=== PATIENT | female | born 1980 | race Two or more races ===

== ENCOUNTER 2017-01-24 20:45 | Observation (INO) | payer MEDICAID ==
[~2017-01-24 20:45] MED LIST: ALEVE220 M4 PO; IBUPROFEN800 M1 PO; PERCOCET 5-3251 EACH PO; PRENATAL TABLE1 EAC5 PO; TRAMADOL HCL50 M2 PO; VENTOLIN HFA18 G2 PO
[2017-01-24 21:32] LABS: URINE BILIRUBIN NEGATIVE (NEG); URINE BLOOD MODERATE (NEG); URINE GLUCOSE (UA) NEGATIVE (NEG); URINE KETONE NEGATIVE (NEG); URINE LEUKOCYTE ESTERASE NEGATIVE (NEG); URINE NITRITE NEGATIVE (NEG); URINE PROTEIN NEGATIVE (NEG)
[2017-01-24 21:34] LABS: BASO % 0.1 % (0-2); EOS % 1.7 % (0-7); EOSINOPHIL ABSOLUTE COUNT 0.2 tho/cmm (0.0-0.7); HCT-HEMATOCRIT 31.3 % (34.0-49.0); HGB-HEMOGLOBIN 10.2 gm/dl (12.0-15.5); IMMATURE GRANULOCYTES ABSOLUTE 0.05 tho/cmm (0-0.03); IMMATURE GRANULOCYTES PERCENT 0.5 % (0-0.3); LYMPH ABSOLUTE COUNT 2.3 tho/cmm (0.8-4.5); MCH (MEAN CORPUSCULAR HGB) 23.2 pg (28.0-32.0); MCHC MEAN CORPUSCULAR HGB CONC 32.6 % (32.0-36.0); MCV (MEAN CELL VOLUME) 71.3 fl (82.0-96.0); MEAN PLATELET VOLUME 9.3 cmc (9.4-12.4); MONO % 5.4 % (0-12); MONOCYTE ABSOLUTE COUNT 0.6 tho/cmm (0.0-1.2); NEUTROPHIL ABSOLUTE COUNT 7.3 tho/cmm (1.6-8.0); NEUTROPHIL-AUTOMATED 7.3 tho/cmm (1.6-8.0); NEUTROPHILS % 70.3 % (40-80); PLATELET COUNT 275 tho/cmm (150-450); RED BLOOD COUNT 4.39 mil/cmm (4.00-5.20); RED CELL DISTRIBUTION WIDTH 15.8 % (12.4-16.4); WHITE BLOOD COUNT 10.3 tho/cmm (4.0-10.0)
[2017-01-24 21:41] LABS: URINE APPEARANCE HAZY; URINE COLOR YELLOW
[2017-01-24 21:45] LABS: URINE WBC 0-1 /[HPF] (0-5)
[2017-01-24 21:46] LABS: URINE EPITHELIAL CELLS 0-1 /[HPF] (0-10)
[2017-02-25] MEDS ORDERED: LABETALOL HCL100 M1 PO (07:53)
[2017-02-25] MEDS ORDERED: BUTALBITAL-ASA1 EACH PO (07:54)
== END 2017-01-24 23:18 ==
LOC: LDR 20:45
PROVIDERS: ADMIT Obstetrics & Gynecology
DX: O26.893 Other specified pregnancy related conditions, third trimester (principal); R10.31 Right lower quadrant pain; M54.9 Dorsalgia, unspecified; Z3A.33 33 weeks gestation of pregnancy

== ENCOUNTER 2017-02-25 08:20 | Inpatient (IN) | payer MEDICAID ==
[~2017-02-25 08:20] MED LIST changes: +BUTALBITAL-ASA1 EACH PO; +LABETALOL HCL100 M1 PO
[2017-02-25 09:02] LABS: BASO % 0.2 % (0-2); EOS % 1.8 % (0-7); EOSINOPHIL ABSOLUTE COUNT 0.2 tho/cmm (0.0-0.7); HCT-HEMATOCRIT 30.3 % (34.0-49.0); HGB-HEMOGLOBIN 9.5 gm/dl (12.0-15.5); LYMPH % 19.5 % (20-45); LYMPH ABSOLUTE COUNT 1.8 tho/cmm (0.8-4.5); MCHC MEAN CORPUSCULAR HGB CONC 31.4 % (32.0-36.0); MCV (MEAN CELL VOLUME) 70.3 fl (82.0-96.0); MEAN PLATELET VOLUME 9.4 cmc (9.4-12.4); MONO % 6.6 % (0-12); MONOCYTE ABSOLUTE COUNT 0.6 tho/cmm (0.0-1.2); NEUTROPHIL ABSOLUTE COUNT 6.7 tho/cmm (1.6-8.0); NEUTROPHIL-AUTOMATED 6.7 tho/cmm (1.6-8.0); NEUTROPHILS % 71.9 % (40-80); PLATELET COUNT 313 tho/cmm (150-450); RED BLOOD COUNT 4.31 mil/cmm (4.00-5.20); RED CELL DISTRIBUTION WIDTH 16.3 % (12.4-16.4); WHITE BLOOD COUNT 9.4 tho/cmm (4.0-10.0)
[2017-02-25] MEDS ORDERED: NO HOME MEDICATION (09:55)
[2017-02-25 14:58] LABS: HGB-HEMOGLOBIN 7.2 gm/dl (12.0-15.5); MCV (MEAN CELL VOLUME) 69.6 fl (82.0-96.0); RED CELL DISTRIBUTION WIDTH 16.2 % (12.4-16.4)
[2017-02-25 14:59] LABS: HCT-HEMATOCRIT 22.7 % (34.0-49.0)
[2017-02-26 06:18] LABS: BASO % 0.1 % (0-2); EOS % 0.7 % (0-7); EOSINOPHIL ABSOLUTE COUNT 0.1 tho/cmm (0.0-0.7); HGB-HEMOGLOBIN 7.3 gm/dl (12.0-15.5); IMMATURE GRANULOCYTES ABSOLUTE 0.07 tho/cmm (0-0.03); IMMATURE GRANULOCYTES PERCENT 0.5 % (0-0.3); LYMPH % 11.2 % (20-45); LYMPH ABSOLUTE COUNT 1.5 tho/cmm (0.8-4.5); MCV (MEAN CELL VOLUME) 71.3 fl (82.0-96.0); MEAN PLATELET VOLUME 9.1 cmc (9.4-12.4); MONO % 6.1 % (0-12); MONOCYTE ABSOLUTE COUNT 0.8 tho/cmm (0.0-1.2); NEUTROPHIL ABSOLUTE COUNT 11.2 tho/cmm (1.6-8.0); NEUTROPHIL-AUTOMATED 11.2 tho/cmm (1.6-8.0); NEUTROPHILS % 81.4 % (40-80); PLATELET COUNT 233 tho/cmm (150-450); RED BLOOD COUNT 3.07 mil/cmm (4.00-5.20); RED CELL DISTRIBUTION WIDTH 17.4 % (12.4-16.4); WHITE BLOOD COUNT 13.7 tho/cmm (4.0-10.0)
[2017-02-26 06:19] LABS: HCT-HEMATOCRIT 21.9 % (34.0-49.0); MCH (MEAN CORPUSCULAR HGB) 23.8 pg (28.0-32.0); MCHC MEAN CORPUSCULAR HGB CONC 33.3 % (32.0-36.0)
[2017-02-28] MEDS ORDERED: IBUPROFEN800 M1 PO (23:12)
[2017-02-28] MEDS ORDERED: FEOSOL325 M1 PO (23:14)
[2017-02-28] MEDS ORDERED: PERCOCET 5-3251 EACH PO (23:14)
== END 2017-03-01 10:10 | DRG 765 ==
LOC: LDR 08:20 → OBGE 12:45
PROVIDERS: ADMIT Specialist
PROC: 10D00Z1 Extraction of Products of Conception, Low, Open Approach (ICD-10-PCS; principal; 2017-02-25)
DX: O34.211 Maternal care for low transverse scar from previous cesarean delivery (principal); O44.23 Partial placenta previa NOS or without hemorrhage, third trimester; O90.81 Anemia of the puerperium; O43.213 Placenta accreta, third trimester; Z3A.37 37 weeks gestation of pregnancy; Z37.0 Single live birth
CPT/HCPCS: J0690; J2210; J2270; J2590; J7030; J7121; P9016

== ENCOUNTER 2017-03-04 20:32 | Emergency (ER) | payer MEDICAID ==
[~2017-03-04 20:32] MED LIST changes: +FEOSOL325 M1 PO; +NO HOME MEDICATION
[2017-03-04 21:11] LABS: BASO % 0.3 % (0-2); EOS % 4.9 % (0-7); EOSINOPHIL ABSOLUTE COUNT 0.5 tho/cmm (0.0-0.7); HCT-HEMATOCRIT 24.6 % (34.0-49.0); HGB-HEMOGLOBIN 7.6 gm/dl (12.0-15.5); IMMATURE GRANULOCYTES ABSOLUTE 0.29 tho/cmm (0-0.03); IMMATURE GRANULOCYTES PERCENT 2.6 % (0-0.3); LYMPH % 24.6 % (20-45); LYMPH ABSOLUTE COUNT 2.7 tho/cmm (0.8-4.5); MCH (MEAN CORPUSCULAR HGB) 23.5 pg (28.0-32.0); MCHC MEAN CORPUSCULAR HGB CONC 30.9 % (32.0-36.0); MCV (MEAN CELL VOLUME) 76.2 fl (82.0-96.0); MEAN PLATELET VOLUME 8.7 cmc (9.4-12.4); MONO % 6.2 % (0-12); MONOCYTE ABSOLUTE COUNT 0.7 tho/cmm (0.0-1.2); NEUTROPHIL ABSOLUTE COUNT 6.8 tho/cmm (1.6-8.0); NEUTROPHIL-AUTOMATED 6.8 tho/cmm (1.6-8.0); NEUTROPHILS % 61.4 % (40-80); PLATELET COUNT 452 tho/cmm (150-450); RED BLOOD COUNT 3.23 mil/cmm (4.00-5.20); RED CELL DISTRIBUTION WIDTH 18.5 % (12.4-16.4); WHITE BLOOD COUNT 11.1 tho/cmm (4.0-10.0)
[2017-03-04 21:38] LABS: PROCALCITONIN <0.05 ng/ml (0.05-0.09)
[2017-03-04 21:56] LABS: ALB/GLOB RATIO 0.5 (0.8-2.0); ALBUMIN 2.4 g/dl (3.5-5.0); ALKALINE PHOSPHATASE 95 U/L (33-138); ALT/SGPT 15 U/L (12-78); ANION GAP 15 mmol/L (0-20); AST/SGOT 9 U/L (10-40); BILIRUBIN,TOTAL 0.3 mg/dl (0-1.5); BLOOD UREA NITROGEN 15 mg/dl (6-24); CALCIUM 8.6 mg/dl (8.5-10.5); CARBON DIOXIDE-VENOUS 24 mmol/L (22-32); CHLORIDE 107 mmol/l (96-110); GLUCOSE 100 mg/dL (70-110); POTASSIUM 3.6 mmol/L (3.7-5.1); SODIUM 142 mmol/L (135-145); eGFR VALUE FOR BLACK >90 mL/Min
[2017-03-04 22:46] LABS: URINE APPEARANCE HAZY; URINE BILIRUBIN NEGATIVE (NEG); URINE BLOOD LARGE (NEG); URINE COLOR YELLOW; URINE GLUCOSE (UA) NEGATIVE (NEG); URINE KETONE NEGATIVE (NEG); URINE LEUKOCYTE ESTERASE POSITIVE (NEG); URINE NITRITE NEGATIVE (NEG); URINE PROTEIN MODERATE (NEG); URINE SPECIFIC GRAVITY 1.025 (1.003-1.030)
[2017-03-04 22:51] LABS: URINE BACTERIA 1+; URINE MUCUS 1+; URINE RBC 30-50 /[HPF] (0-5); URINE WBC 100-130 /[HPF] (0-5)
[2017-03-04] MEDS ORDERED: KEFLEX500 M4 PO (22:57)
== END 2017-03-04 23:04 ==
LOC: EDMED 20:32
PROVIDERS: Physician Assistant
DX: O86.20 Urinary tract infection following delivery, unspecified (principal); G89.18 Other acute postprocedural pain; O99.53 Diseases of the respiratory system complicating the puerperium; J45.909 Unspecified asthma, uncomplicated
CPT/HCPCS: J1170; J2405; J7030